=== PATIENT | male | born 1955 | race Caucasian/White ===

== ENCOUNTER 2016-09-30 14:28 | Observation (INO) | payer OTHER ==
[~2016-09-30] VITALS: Ht 188 cm; Wt 125.6 kg
--- NOTE | ~2016-09-30 | OR ---
PATIENT'S NAME: BRITTANY ECHEVARRIA [facility] AGE: 61 Y [address] ROOM: [place] [address] LOCATION: [facility] ADMIT DATE: 09/30/2016 OR/Procedure Report DISCHARGE DATE: FAMILY PHYSICIAN: Gama Navas MD ATTENDING PHYSICIAN: RJ CRABTREE SURGEON: Rj Crabtree MD PRESSING MACHINE OPERATOR: None. DATE OF PROCEDURE: 09/30/2016 PREOPERATIVE DIAGNOSES: 1. Right foot gastrocnemius equinus/shortened Achilles tendon. 2. Right dorsum of the foot abscess. POSTOPERATIVE DIAGNOSES: 1. Right foot gastrocnemius equinus/shortened Achilles tendon. 2. Right dorsum of the foot abscess. PROCEDURE: 1. Right gastrocnemius recession procedure. 2. Irrigation and debridement of right dorsal foot abscess, 4 cm x 4 cm, included skin and subcutaneous tissue. FLUIDS: See Anesthesia report. ESTIMATED BLOOD LOSS: Minimal. TOURNIQUET: Right proximal thigh at 300 mmHg. SPECIMEN: Cultures from right foot. COMPLICATIONS: None. DISPOSITION: Stable in PACU. COUNTS: All counts correct. INDICATIONS: Mr. Echevarria is a pleasant gentleman who underwent the noted procedures above. The risks, benefits, and alternatives pursuing surgical intervention were discussed with the patient in detail. He elected to proceed with surgery as noted above. Anesthesia was consulted for their perioperative evaluation of the patient. DESCRIPTION OF PROCEDURE: The patient was brought from the holding area to the operating room. A time-out was performed. Anesthesia was administered. Ancef antibiotic was held for the purposes of obtaining cultures PATIENT'S NAME: BRITTANY ECHEVARRIA [facility] AGE: 61 Y [address] ROOM: [place] [address] LOCATION: [facility] ADMIT DATE: 09/30/2016 OR/Procedure Report DISCHARGE DATE: FAMILY PHYSICIAN: Gama Navas MD ATTENDING PHYSICIAN: RJ CRABTREE intraoperatively. The right lower extremity was then prepped and draped in a sterile fashion. Leg was elevated and tourniquet was inflated to 250 mmHg. A final time-out was performed. I turned my attention to the medial aspect of the leg. I made a longitudinal incision through skin and subcutaneous tissue down to muscle fascia muscled down to the gastrocnemius aponeurosis. I performed a gastrocnemius recession procedure. The wound was then copiously irrigated and closed in layers. I then turned my attention to the dorsum of the foot. There is an abscess present. There is erythema, warmth, and purulent drainage. The abscess measured approximately 4 cm x 4 cm. Using a 15 blade knife, I lysed the access and performed irrigation and debridement of skin and subcutaneous tissue. The wound was then copiously irrigated with a normal sterile saline solution via pulsatile lavage. Sterile dressing was placed in the form of Xeroform, followed by 4x4, Webril, and Jun bandage. The tourniquet was let down. All the toes reperfused. The patient was then transferred to the operating table onto the hospital bed and extubated. He was then brought to recovery room in stable condition. There were no intraoperative complications noted. IMPRESSION: The patient is status post the noted procedures above. PLAN: The patient will be heel weightbearing on the right lower extremity. He will be otherwise encouraged to rest, ice, and elevate the extremity going forward. Ancef antibiotics will be continued for now. We will ask Infectious Disease be consulted. The hospitalist will follow the patient along for his concomitant medical comorbidities. We will follow up the intraoperative cultures that were obtained after the abscess was lysed. I will follow the patient closely as he is being admitted. MD EDILSON DE LA O/minh /[id number] d: 10/01/16 0013 t: 10/01/16 1713, OPERATIVE SUMMARY
--- NOTE | ~2016-09-30 | DS ---
[facility] 61 [facility] [address] ROOM: [place] [id number] LOCATION: [facility] ADMIT DATE: 09/30/2016 Discharge Summary DISCHARGE DATE: 10/03/2016 FAMILY PHYSICIAN: Gama Navas MD ATTENDING PHYSICIAN: Chico Swift ADMITTING DIAGNOSES: 1. Right dorsal foot abscess. 2. Right foot gastrocnemius equinus/shortened Achilles tendon. DISCHARGE DIAGNOSES: 1. Right dorsal foot abscess. 2. Right foot gastrocnemius equinus/shortened Achilles tendon. SECONDARY DIAGNOSES: 1. BPH. 2. Chronic congestive heart failure. 3. Nicotine dependence. 4. Chronic obstructive pulmonary disease. 5. Depression. 6. History of deep venous thrombosis, status post Jamal filter placement. 7. History of pulmonary embolus. 8. Hyperlipidemia. 9. Hypertension. 10. Long-term use of anticoagulation. 11. Obesity. 12. Obstructive sleep apnea. 13. Atrial fibrillation. 14. Pulmonary hypertension. 15. Tricuspid valvular disorder. 16. Diabetes mellitus type 2 with diabetic peripheral neuropathy. CONSULTATIONS: The patient's PCP, Dr. Navas, for medical management and Dr. Bert Ramon with Infectious Disease Service. PROCEDURE: On September 30, 2016, the patient underwent the following procedure by Dr. Swift: 1. Right gastrocnemius recession. 2. Irrigation and debridement of right dorsal foot abscess, 4 cm x 4 cm, including skin and subcutaneous tissue. HISTORY OF PRESENT ILLNESS: The patient is a 61-year-old male, who was seen by Dr. Swift in the office for evaluation and recommendation regarding right foot abscess. After being seen and examined in the office, it was determined PATIENT'S NAME: BRITTANY QUEVEDO [facility] AGE: 61 Y [address] ROOM: [address] [place] [id number] LOCATION: [facility] ADMIT DATE: 09/30/2016 Discharge Summary DISCHARGE DATE: 10/03/2016 FAMILY PHYSICIAN: Gama Navas MD ATTENDING PHYSICIAN: Chico Swift that he would benefit from an irrigation and debridement of his right foot abscess. The risks, benefits, and alternatives pursuing to surgical intervention were discussed with the patient in detail. The patient did elect to proceed with surgery at that time. HOSPITAL COURSE: The patient underwent the above described procedure by Dr. Swift. He tolerated the procedure well. He was continued on postop antibiotics during his admission. He was managed medically was seen and optimized medically by Dr. Navas. The patient was seen by Infectious Disease Service, they agreed with the postoperative Ancef and gave a one time order for vancomycin until final cultures were resulted. After the final cultures were received, the results were discussed with the Infectious Disease doctor who was on-call for Dr. Ramon, who did recommend Augmentin and doxycycline oral on discharge. The patient was nonweightbearing on his right lower extremity, and the patient with final recommendations on oral antibiotics determined to be stable for discharge home on October 03, 2016. DISCHARGE INSTRUCTIONS: The patient is to be non-weight bearing of his right lower extremity. The patient is to resume his previous home diet. DISCHARGE MEDICATIONS: Stop medications: Bactrim DS. New medications: 1. Doxycycline 100 mg p.o. b.i.d. 2. Augmentin 875/125 one tab twice a day. 3. Percocet 5/325 one to two tabs every 4-6 hours as needed for pain. Otherwise, the patient was instructed to continue his preadmission medications as prescribed by his internal medicine doctor. FOLLOWUP: The patient is to follow up with Dr. Swift on Friday October 07, 2016 at 1:20 p.m. for his initial postoperative followup. He is supposed to follow up with Dr. Navas on Sunday October 23, 2016 at 10:30 a.m. Discharge status: Good TALI LOUIS PA-C FOR MD JULEE DE LA O/minh /[id number] d: 10/19/162341 t: 10/20/16 174, DISCHARGE SUMMARY
--- NOTE | ~2016-09-30 | CON ---
PATIENT'S NAME: IBRAHIMA QUEVEDO [facility] AGE: 61 Y [address] ROOM: [place] [address] LOCATION: [facility] ADMIT DATE: 09/30/2016 Consultation DISCHARGE DATE: FAMILY PHYSICIAN: Gama Navas MD ATTENDING PHYSICIAN: RJ CRABTREE DATE OF CONSULTATION: 10/01/2016 REASON FOR CONSULTATION: Right foot abscess. REQUESTING PHYSICIAN: Consultation is requested by Dr. Rj Crabtree. HISTORY OF PRESENT ILLNESS: Ibrahima is a 61-year-old male, whom I was asked to see by Dr. Rj Crabtree for further evaluation and recommendations regarding a right foot abscess. Ibrahima was admitted for incision and drainage of an abscess on the right foot, which developed approximately two weeks ago following a scratch from one of his dogs. Interestingly, he had a significant soft-tissue infection a few weeks earlier related to a dog bite on his thumb. In any event, the right foot infection progressed despite oral antibiotic treatment with Bactrim. Apparently, he did not have cultures obtained prior to this procedure. Surgical procedure was carried out on 10/01/2016, with a significant debridement of the foot involving the skin and subcutaneous tissue. There was no note of bone involvement or resection. Gram stain is showing gram-positive cocci in clusters, cultures pending. PAST MEDICAL HISTORY: Hypertension, type 2 diabetes, (by report). CURRENT MEDICATIONS: See the MAR for complete listing. His current antibiotic is cefazolin. FAMILY HISTORY: Unremarkable or noncontributory to the current illness. SOCIAL HISTORY: No tobacco or alcohol abuse history to my knowledge. REVIEW OF SYSTEMS: A complete review of systems was carried out, and was remarkable only as noted. Please refer to the admitting history and physical for details. PATIENT'S NAME: IBRAHIMA QUEVEDO [facility] AGE: 61 Y [address] ROOM: [place] [address] LOCATION: [facility] ADMIT DATE: 09/30/2016 Consultation DISCHARGE DATE: FAMILY PHYSICIAN: Gama Navas MD ATTENDING PHYSICIAN: RJ CRABTREE PHYSICAL EXAMINATION: GENERAL: He appears comfortable and is in no distress. VITAL SIGNS: Temperature is 36.5, blood pressure 133/73, and pulse 83. HEENT: Posterior pharynx clear, no adenopathy or thyromegaly. Cranial nerves are intact. NECK: Supple. CHEST: Clear to auscultation. CARDIOVASCULAR: Regular rate and rhythm without S3, S4, or murmur. ABDOMEN: Soft, nontender, without hepatosplenomegaly or masses. EXTREMITIES: The right foot and lower leg were dressed and wrapped with an Jun bandage. PSYCHIATRIC: Behavior and affect appropriate. NEUROLOGIC: Strength and sensation grossly intact. LABORATORY DATA: Laboratory: White count 11.8. IMPRESSION: Right foot soft-tissue infection, likely with Staphylococcus aureus. He has no known history of methicillin-resistant Staphylococcus aureus. As bone was apparently not involved, I do not feel we would necessarily need prolonged intravenous antibiotics. If he is significantly improved prior to discharge from the hospital, he could go on oral antibiotics with an agent such as cefuroxime if sensitive, otherwise, we could continue with IV antibiotics for a short period of time. PLAN: We will continue cefazolin at 2 g every 8 hours, and I have ordered a one time dose of vancomycin at 1.5 g. If the culture comes back MRSA, then he would need to be continued on vancomycin or similar agent. If not, we can continue cefazolin. As noted, if he is significantly improved at the time of discharge, we could exchange engineer to an oral agent such as cefuroxime 500 mg twice daily. If not MRSA, or doxycycline 100 mg twice daily if MRSA is present and sensitive to tetracycline. We could also consider a course of IV antibiotics to continue until he sees us in followup in the clinic. Please contact us for further recommendations if that is the case. We will see him back on a p.r.n. basis. I am available to discuss the case by phone at any time at [phone]. Thank you for this consultation. PATIENT'S NAME: IBRAHIMA QUEVEDO [facility] AGE: 61 Y [address] ROOM: [place] [address] LOCATION: [facility] ADMIT DATE: 09/30/2016 Consultation DISCHARGE DATE: FAMILY PHYSICIAN: Gama Navas MD ATTENDING PHYSICIAN: RJ CRABTREE MD JSS/modl /[id number] CC: Rj Crabtree MD d: 10/01/16 1715 t: 10/02/16 0812, CONSULTATION REPORT
[~2016-09-30 14:28] MED LIST: ALDACTONE50 MG PO; ASPIRIN EC81 MG PO; BACTRIM DS TAB1 EACH PO; CPAP INH; LOPRESSOR100 MG PO; MAPAP500 M1 PO; XARELTO20 MG PO
--- NOTE | 2016-09-30 21:58 | NUR ---
Patient admitted post I&D of right foot by Dr. Swift. Patient had dog land between toes on right foot and became infected. History of afib, pfo (repaired), previous PE, and has been anticoag on xarelto. Wears CPAP at home.
[2016-10-01 04:02] LABS: BASOPHIL % 0.3 %; HEMATOCRIT 50.3 % (37.0-53.0); HEMOGLOBIN 15.3 g/dL (12.0-17.0); IMMATURE GRANULOCYTE # 0.1 K/uL (0.0-0.3); IMMATURE GRANULOCYTE % 0.7 %; LYMPHOCYTE # 0.6 K/uL (0.8-4.0); LYMPHOCYTE % 5.4 %; MCH 25.5 pg (27.0-34.0); MCHC 30.4 gm/dL (32.0-36.5); MONOCYTE # 0.4 K/uL (0.0-1.0); MONOCYTE % 3.1 %; NEUTROPHIL # (ANC) 10.6 K/uL (1.4-9.0); NEUTROPHIL % 90.5 %; NRBC % 0 /100WBC (0-0.00); PLATELET COUNT 185 K/uL (150-450); RBC 5.99 M/uL (4.00-6.00); RDW-CV 20.2 % (11.9-14.6); WBC 11.8 K/uL (4.0-11.0)
--- NOTE | 2016-10-01 04:46 | NUR ---
Significant Event:Patient alert and ox3. Up with 1ass/gb/walker, pivoted only this shift. C/o pain with Percocet x2 last at 0149. Rt toes are warm to touch, able to wiggle toes slightly. States normal sensation to toes. O2 at 4l per NC when awake, Cpap with 8L bleed in while sleeping. Repostions self frequently. Voids per urinal. PIV left fa, SL. Follow up:Monitor for pain.
--- NOTE | 2016-10-01 13:00 | NUR ---
Introduced self and CM role to Ibrahima. Ibrahima tells me that he lives in [place] with his and plans to return there upon dismissal. Tells me that his will come and pick him up when he is dismissed. Per Ibrahima, his PCP is , he gets his medications filled at [facility] in [place]. He is listed as self pay on our information and he did confirm that he does not have insurance at this time. Made sure that he was provided with the financial assistance form and encouraged him to fill it out and return it upon his dismissal. He denies having any issues with obtaining his medications or paying for them. Ibrahima also shares with me that he has a FWW, crutches and O2 concentrator at home to use if he should need it. He denies any needs for additional DME or HHC follow up. Tells me he is hoping to get back home either later today or tomorrow. No other questions, needs or concerns. CM to continue to follow and assist. Plan home.
--- NOTE | 2016-10-01 13:38 | NUR ---
Significant Event: VSS. PATIENT A/O X 3. FOLLOWS COMMANDS. WIGGLES TOES TO RT LEG, STATED SOME NUMBNESS IN TOES THIS AM BUT NORMAL NOW. LUNGS CLEAR AND DIM, WEARS CPAP WHEN SLEEPING OR HAS REQUIRED 1-3 LITERS DURING THE DAY. C/O PAIN TO RT LEG, TOLERABLE WITH PRN PERCOCET. UP WITH 1 ASSIST AND WALKER, NON WEIGHT BEARING TO RT LEG. IV IN LEFT FOREARM, SALINE LOCKED. ID SAW PATIENT TODAY AND STARTED IV ANTIBIOTICS Q 8HRS THEN A ONE TIME DOSE OF VANCOMYCIN. ALARMS ON FOR SAFETY. Follow up: PAIN CONTROL. IV ANTIBIOTICS. O2 NEEDS DURING DAY?
--- NOTE | 2016-10-02 06:24 | NUR ---
Significant Event: Patient is alert and oriented x3. Follows commands. VSS. PERRLA. Denies MEJIA and N/T. Pain is generalized to the right leg. Sinus rhythm-edema to the lower extremities. Unable to assess pulses in the right extremity-left has 2+. Patient has been on 3-4L of O2 per NC. Bled in 8L of O2 per CPAP at NOC-c/d throughout. Regular diet-takes pills whole with water. Last BM 09/30-active x4. NWBT RE-1-2A. L) PIV sl'd when not running antibiotics. Percocet given at 0615. Follow up: Possible D/C 10/02.
--- NOTE | 2016-10-02 13:08 | NUR ---
Significant Event: A/O X 3. FOLLOWS COMMANDS. MODERATE STRENGTH. ABLE TO WIGGLE TOES TO RT FOOT. DRESSING CHANGED BY RAFAT CESAR TODAY. DENIES NUMBNESS/TINGLING. PAIN TOLERABLE WITH PRN PERCOCET. LUNGS CLEAR AND DIM, CURRENTLY ON 2 LITERS OF O2. WEARS CPAP AT NIGHT. IV IN LEFT FOREARM SALINE LOCKED, CONTINUES ON IV ANTIBIOTICS. UP WITH STANDBY ASSIST, NON WEIGHT BEARING TO RT LOWER EXTREMITY. AWAITING CULTURE RESULTS REGARDING PLAN FOR PATIENT. ALARMS ON FOR SAFETY. Follow up: PAIN CONTROL. PLAN?
--- NOTE | 2016-10-03 02:27 | NUR ---
Significant Event: A/Ox3. Ambulates 1A NWB to RLE. 3-4L O2 NC at hs and refused to wear CPAP with respiratory after 0100. Jun wrap cast to RLE c/d/i and wiggles toes. Percocet for pain at hs. Left forearm IV saline locked and receives IV cefazolin q8h. Follow up:
--- NOTE | 2016-10-03 09:52 | NUR ---
0996 Talked with TAJ Carlton who tells me that his cultures are back and she has a call into ID to see what they recommend for IV Abxs vs PO medications for when Ibrahima goes home. No call back from ID at this point. TAJ Carlton to update me when she hears back from him. Did let Bianka know that he is self pay so if we could get him on PO medications that would be best, if they were to keep him on IV Abxs, then we would have to either keep him here to do them or see if we could get him back to [place] to do his IV Abxs on an outpatient basis. This would depend on if they would work with a self pay patient. CM to continue to follow and assist.
[2016-10-03 14:41] LABS: ANION GAP 10.7 (10.0-19.0); BLOOD UREA NITROGEN 20 mg/dL (6-24); CALCIUM 8.4 mg/dL (8.5-10.5); CHLORIDE 101 mMol/L (96-110); CO2 31 mMol/L (22-32); ESTIMATED GFR (MDRD EQUATION) > 60; SODIUM 138 mMol/L (135-145)
[2016-10-03 14:43] LABS: POTASSIUM 4.7 mMol/L (3.7-5.1)
--- NOTE | 2016-10-03 15:05 | NUR ---
Significant Event: Patient A/O x3. Neuros intact. Denies any new N/T. VSS. Able to wiggle toes to the right foot. CSMs intact. Warm to touch. 2L O2 with sats in the mid 90s. LS clear and diminsihed. patient states he uses oxygen at home. Voids per the urinal. BS active X4. Dressing to right foot. C/D/I. PIV to L) forearm. SLL. SBA using gaitbelt and walker. NWB to the right foot. Percocet given last at 1500 for pain. Pleasant and cooperative with cares. Follow up: Patient to D/C home today yet when antibiotics are addressed
[2016-10-03] MEDS ORDERED: PERCOCET 5-3251 EACH PO (16:59)
[2016-10-03] MEDS ORDERED: AUGMENTIN 875-1 EACH PO (17:00)
[2016-10-03] MEDS ORDERED: DOXYCYCLINE100 MG PO (17:01)
--- NOTE | 2016-10-03 19:39 | NUR ---
Patient discharged to home at 1905. came and picked him up. Went down stairs per wheelchair with aid able to ambulate 1 assist GBW. Denied pain. Discharge paper work had been completed with the day nurse. Last strip for telemetry taken and IV discontinued during day shift. Pain meds last given at 1700 patient denied pain at time of discharge. Last set of vitals taken and patient discharged. VSS.
== END 2016-10-03 19:43 | disposition disaster alternative care site (69) ==
LOC: GSDC 14:28 → GNTU 14:28 → G3N 14:28 → GNTU 21:00 → GSDC 21:01 → GNTU 10-02 15:00
PROVIDERS: Physician Assistant Medical; ADMIT Orthopaedic Surgery Adult Reconstructive Orthopaedic Surgery
PROC: 0L8N0ZZ Division of Right Lower Leg Tendon, Open Approach (ICD-10-PCS; principal; 2016-09-30)
PROC: 0JBQ0ZZ Excision of Right Foot Subcutaneous Tissue and Fascia, Open Approach (ICD-10-PCS; 2016-09-30)
DX: M62.471 Contracture of muscle, right ankle and foot (principal); L02.611 Cutaneous abscess of right foot; F17.210 Nicotine dependence, cigarettes, uncomplicated; J44.9 Chronic obstructive pulmonary disease, unspecified; I48.2 Chronic atrial fibrillation; E11.42 Type 2 diabetes mellitus with diabetic polyneuropathy; I11.0 Hypertensive heart disease with heart failure; I50.32 Chronic diastolic (congestive) heart failure; G47.33 Obstructive sleep apnea (adult) (pediatric); Z86.711 Personal history of pulmonary embolism; Z79.899 Other long term (current) drug therapy; Z79.82 Long term (current) use of aspirin
CPT/HCPCS: G0378; J0131; J0690; J1100; J1170; J2001; J2270; J2405; J3010; J3360; J3370; J7030; J7040; J7050